=== PATIENT | female | born 1980 | race Caucasian/White ===

== ENCOUNTER 2020-09-11 04:50 | Inpatient (IN) | payer BC, SELFPAY ==
[2020-09-11] VITALS (88 sets, daily range): BP systolic 75–126; BP diastolic 51–96; PULSE 72–169; RESP 16; TEMP 36.1–37.3; O2SAT 94–100; BMI 32.5
--- NOTE | 2020-09-11 04:50 | LDADM ---
This patient, Mabel Clayton, was admitted to Labor/Delivery/Recovery 104 on 09/11/20 at 04:50. Plans for labor, pain management and were discussed with patient. Patient/family oriented to hospital policies and general routines including ID bracelet, bed and alarms, visiting hours, pain management, procedures, bathroom and other care routines, personal items, smoking policy, room service/diet and guest tray routines, security routines, and visiting hours. Patient/Family are encouraged to report perceived risks to care and to ask questions if they do not understand what they are told or what they should do. See OBIX for further documentation.
[2020-09-11 05:32] LABS: Basophils Percent Auto 0.4 % (0.2-1.2); Eosinophils Absolute Auto 0.1 K/mm3 (0-0.3); Eosinophils Percent Auto 1.3 % (0-4.4); Hematocrit 29.7 % (37.0-47.0); Hemoglobin 9.5 g/dL (12.0-15.0); Lymphocytes Absolute Auto 2.65 K/mm3 (0.9-3.2); Lymphocytes Percent Auto 27.3 % (18.3-44.2); Mean Corpuscular Hemoglobin 27.5 pg (26-34); Mean Corpuscular Volume 86.1 fl (80-100); Monocytes Absolute Auto 0.7 K/mm3 (0.1-0.6); Neutrophils Absolute Auto 6.1 K/mm3 (1.3-6.7); Platelet Count Result 192 k/mm3 (150-375); Red Blood Count 3.45 M/mm3 (4.2-5.4); White Blood Count 9.7 K/mm3 (4.5-10.0)
[2020-09-11] MEDS: AMPICILLIN 2 GM/NS 100 ML 2 GM/100 ML BAG IVPB (05:33)
[2020-09-11] MEDS: LACTATED RINGERS 1,000 ML 125 ML IV CONT ×2 (05:33→06:53)
[2020-09-11] MEDS: CALCIUM CARBONATE (TUMS) 500 MG (200 MG ELEMENTAL) PO (05:51)
--- NOTE | 2020-09-11 06:06 | WPDANESEPP ---
Anes - Eval Pre Procedure Procedure: labor epidural Date/Time: 09/11/20 06:06 Surgeon: ara Pre Op Diagnosis: IOL Patient Data Age: 40 Gender: F Height: 1.55 m Weight: 78 kg Last Vital Signs Temp 37.3 C 09/11/20 05:31 Pulse 98 09/11/20 06:00 BP 108/67 09/11/20 06:00 Allergies Allergy/AdvReac Type Severity Reaction Status Date / Time hydrocodone AdvReac Mild Nausea and Verified 05/23/19 19:33 Vomiting Home Medications Medication Instructions Recorded Confirmed Type PNV cmb#95-ferrous fumarate-FA 1 tablet PO DAILY 08/24/20 08/24/20 History [] Laboratory Tests 09/11/20 09/11/20 09/11/20 05:24 05:24 05:24 WBC 9.7 K/mm3 K/mm3 (4.5-10.0) RBC 3.45 M/mm3 L M/mm3 (4.2-5.4) Hgb 9.5 g/dL L g/dL (12.0-15.0) Hct 29.7 % L % (37.0-47.0) MCV 86.1 fl fl (80-100) MCH 27.5 pg pg (26-34) MCHC 32.0 g/dl g/dl (32-36) RDW 16.0 % H % (11.5-14.5) Plt Count 192 k/mm3 k/mm3 (150-375) MPV 11.0 fl H fl (7.4-10.4) Immature Gran % (Auto) 1.0 % H % (0-0.5) Neut % (Auto) 63.0 % % (45.5-73.1) Lymph % (Auto) 27.3 % % (18.3-44.2) [place] % (Auto) 7.0 % % (2.6-8.5) Eos % (Auto) 1.3 % % (0-4.4) Baso % (Auto) 0.4 % % (0.2-1.2) Lymph # (Auto) 2.65 K/mm3 K/mm3 (0.9-3.2) [place] # (Auto) 0.7 K/mm3 H K/mm3 (0.1-0.6) Eos # (Auto) 0.1 K/mm3 K/mm3 (0-0.3) Baso # (Auto) 0.0 K/mm3 K/mm3 (0.0-0.1) Abs Immat Gran (auto) 0.10 K/mm3 H K/mm3 (0.00-0.031) Absolute Neuts (auto) 6.1 K/mm3 K/mm3 (1.3-6.7) Absolute Nucleated RBC 0.0 K/mm3 K/mm3 (0.0-0.012) Nucleated RBC % 0.0 % % (0.0-0.2) RPR Pending HIV 1&2 Ab/P24 Ag 4thGn Pending Patient hx anesthesia problems: none Family hx anesthesia problems: none PMFSH Family History Family History Sibling Patient's sister is in good health Patient's brother is in good health Mother Family history of kidney disease Father Family history of diabetes mellitus in first degree relative Social History Social History Smoking status: Never smoker Alcohol intake: current Substance use: never Gender identity (if verbalized by the patient): Female Spiritual care concerns: No Exam Day of Procedure 09/11/20 06:06
[2020-09-11 06:29] LABS: HIV 1/2 Ab P24 Ag Result Negative (Negative)
--- NOTE | 2020-09-11 09:05 | WPDOBADMIT ---
Obstetrics - Admit Note Admission Note: record reviewed. Additions to the history and/or subsequent changes in the physical findings follow. 40 y/o at 39 weeks gestation with a favorable cervix, desiring induction of labor. GBS pos. AVSS ABD soft, nontender, gravid NST reactive TOCO: contractions every 2-4 min EXT nontender Cervix 6/80/-1. AROM with clearl fluid. A: IUP at term with advanced dilation of cervix. GBS pos. P: Oxytocin. Ampicillin. Anticipate ..
[2020-09-11] MEDS: AMPICILLIN 1 GM/NS 50 ML 1 GM/50 ML BAG IVPB (09:19)
[2020-09-11] MEDS: OXYTOCIN 30 UNITS/NS 500 ML 30 UNITS/500 ML BAG IV CONT (09:49)
[2020-09-11 11:04] LABS: Rapid Plasma Reagin Non-Reactive (NonReactive)
--- NOTE | 2020-09-11 11:14 | PM.OBPRVD ---
OB - Delivery Note Procedure Delivery date: 09/11/20 Procedure: Induction of labor with Intrapartal events: None Induction method: AROM and per pitocin protocol Delivery monitor: external FHT and external uterine Route of delivery: Laceration Description: Perineal - 2nd Degree Delivery repair: vicryl (3-0) Specimen: Yes (cord blood) Quantitative Blood Loss (ml): 620 Anesthesia type: Epidural Disposition: PACU Complications: None Narrative: 40 y/o at 39 weeks gestation who presented to the hospital for induction of labor. Oxytocin was administered intravenously. She received ampicillin for GBS colonization. Amniotomy was performed with return of clear fluid. She received an epidural for pain control. Her labor progressed and her cervix dilated completely. She pushed with good effort and delivered the infant's head to the perineum. The loose nuchal cord was splinted and the body delivered. The cord was reduced. The nose and mouth were bulb suctioned. After a delay, the cord was clamped and cut. The was handed off the field. Cord blood was collected. The placenta delivered spontaneously and was grossly normal in appearance. The usual 3 vessel cord was noted. A second degree midline perineal laceration was sustained. This was reapproximated using 3 0 Vicryl in the usual layered fashion. Excellent hemostasis resulted as did excellent reapproximation of the normal anatomy. Needle and instrument counts were correct. The patient was taken to recovery room in stable condition. The went to the nursery in stable condition. I was present and scrubbed for the entire delivery. Baby Date of : 09/11/20 Time of : 11:42 Weeks of gestation at delivery: 39 Infant gender: Female Weight (pounds): 8 Weight (ounces): 0 presentation: vertex position: Left Occiput Posterior Placenta delivery description: Spontaneous and Normal Configuration cord vessel description: 3 Vessels, Nuchal Cord and Delayed Cord Clamping score one minute: 8 score five minutes: 9
--- NOTE | 2020-09-11 11:16 | PM.OBDSVD ---
DS: Admitting Diagnosis Admitting Diagnosis Admitting Diagnosis: IUP at 39 weeks Favorable cervix GBS colonization DS: Discharge Diagnosis Discharge Diagnosis (1) (normal spontaneous vaginal delivery): Code(s): O80 - Encounter for full-term uncomplicated delivery Status: Acute (2) GBS (group B Streptococcus carrier), +RV culture, currently : Code(s): O99.820 - Streptococcus B carrier state complicating Status: Acute OB - DS: Summary OB Procedures : None OB Procedures Intrapartum: Spontaneous Vag Delivery OB Procedures: : None DS: Data Data Completed and Pending Labs on day of discharge: Labs from last 24 hours 09/11/20 09/11/20 09/11/20 05:24 05:24 05:24 WBC 9.7 RBC 3.45 L Hgb 9.5 L Hct 29.7 L MCV 86.1 MCH 27.5 MCHC 32.0 RDW 16.0 H Plt Count 192 MPV 11.0 H Immature Gran % (Auto) 1.0 H Neut % (Auto) 63.0 Lymph % (Auto) 27.3 [place] % (Auto) 7.0 Eos % (Auto) 1.3 Baso % (Auto) 0.4 Lymph # (Auto) 2.65 [place] # (Auto) 0.7 H Eos # (Auto) 0.1 Baso # (Auto) 0.0 Abs Immat Gran (auto) 0.10 H Absolute Neuts (auto) 6.1 Absolute Nucleated RBC 0.0 Nucleated RBC % 0.0 RPR Non-reactive HIV 1&2 Ab/P24 Ag 4thGn Blood Type A Positive Antibody Screen Negative 09/11/20 05:24 WBC RBC Hgb Hct MCV MCH MCHC RDW Plt Count MPV Immature Gran % (Auto) Neut % (Auto) Lymph % (Auto) [place] % (Auto) Eos % (Auto) Baso % (Auto) Lymph # (Auto) [place] # (Auto) Eos # (Auto) Baso # (Auto) Abs Immat Gran (auto) Absolute Neuts (auto) Absolute Nucleated RBC Nucleated RBC % RPR HIV 1&2 Ab/P24 Ag 4thGn Negative Blood Type Antibody Screen Discharge Plan Discharge Attending physician on discharge: Dipak Mesa Discharging Clinician: Dipak Mesa Patient Disposition: Home, Self-Care Activity: pelvic rest Diet: regular Discharge Instructions: Call or return if temperature above 100.4? F, increased abdominal pain, increased vaginal bleeding or any new problems. Stand Alone Forms: General Discharge Information Follow-up/Referrals: Dipak Mesa MD [Physician] - 6 Weeks Discharge Medications: New oxycodone-acetaminophen [Percocet] 5-325 mg tablet 1 - 2 tablet PO Q6H PRN (Reason: pain) Qty: 30 RF: 0 ibuprofen 600 mg tablet 600 mg PO Q6H PRN (Reason: cramps) Qty: 30 RF: 0 ferrous sulfate 325 mg (65 mg iron) tablet 325 mg PO DAILY Qty: 30 RF: 0 No Action PNV cmb#95-ferrous fumarate-FA [] 28 mg iron- 800 mcg Tablet 1 tablet PO DAILY RF: 0 Date of admission: 09/11/20 04:50 Primary Care Provider: PHYSICIAN,SENIOR PATIENT ACCOUNT REPRESENTATIVE Admitting Provider: Dipak Mesa Attending physician on admission: Dipak Mesa Condition: Stable
[2020-09-11] MEDS: OXYTOCIN 30 UNITS/NS 500 ML 30 UNITS/500 ML BAG 125 UNITS IV CONT (11:20)
[2020-09-11] MEDS: BENZOCAINE 20% AER SPR (*SP) 56 GM CAN 1 SPRAY TOPICAL (12:33)
[2020-09-11] MEDS: WITCH HAZEL 40 PADS 1 PAD TOPICAL (12:33)
[2020-09-11] MEDS: LANOLIN (LANSINOH) 7.5 GM CREAM 1 APPLIC TOPICAL (12:33)
[2020-09-11] MEDS: IBUPROFEN 600 MG TABLET PO ×2 (13:08→19:20)
[2020-09-11] MEDS: ACETAMINOPHEN 325 MG TABLET 650 MG PO (14:07)
--- NOTE | 2020-09-11 14:55 | PC.NURSE ---
Patient transferred to post room #281 via wheelchair from labor and delivery. Support person present. Oriented to unit, room, information board, rooming in, admission packet and security measures. Patient verbalizes understanding.
[2020-09-11] MEDS: DOCUSATE SODIUM 100 MG CAPSULE PO (15:58)
[2020-09-11] MEDS: oxyCODONE/ACETAMINOPHEN (*CRX) 5-325 MG TABLET 1 TABLET PO ×2 (15:58→23:30)
[2020-09-11] MEDS: POLYSACCHARIDE IRON COMPLEX 150 MG CAPSULE PO (15:58)
[2020-09-12] MEDS: IBUPROFEN 600 MG TABLET PO ×4 (01:04→19:33)
[2020-09-12] MEDS: oxyCODONE/ACETAMINOPHEN (*CRX) 5-325 MG TABLET 1 TABLET PO (04:26)
[2020-09-12 05:22] LABS: Hematocrit 20.8 % (37.0-47.0); Hemoglobin 6.6 g/dL (12.0-15.0)
[2020-09-12 07:30] VITALS: BP 92/56; PULSE 97; RESP 16; TEMP 36.5
--- NOTE | 2020-09-12 08:53 | WPDANLDPN2 ---
Anes-Prog Note L&D Date/Time: 09/12/20 08:53 Comfortable throughout: labor and delivery Neuraxial method: epidural Epidural/Spinal procedure site: clean & non-tender Neuro status: Neuro function grossly intact. Cardiovascular status: normal Respiratory status: normal Airway patency: baseline Mental status: baseline Post-Op hydration status: normal Vital Signs: Last Vital Signs Temp 36.5 C 09/12/20 07:30 Pulse 97 09/12/20 07:30 Resp 16 09/12/20 07:30 BP 92/56 L 09/12/20 07:30 Pulse Ox 94 09/11/20 20:00 Pain score (VAS): 0 Post-procedural complaints: none Patient feedback: Patient satisfied with anesthetic care.
[2020-09-12] MEDS: POLYSACCHARIDE IRON COMPLEX 150 MG CAPSULE PO ×2 (09:01→16:18)
[2020-09-12] MEDS: DOCUSATE SODIUM 100 MG CAPSULE PO ×2 (09:01→16:18)
[2020-09-12] MEDS: MULTIVIT/MIN/PREN/FOL AC/IRON TABLET 1 TAB PO (09:02)
[2020-09-12] MEDS: ACETAMINOPHEN 325 MG TABLET 650 MG PO ×3 (10:03→22:15)
--- NOTE | 2020-09-12 10:10 | PC.NURSE ---
Phone call placed to Dr. Mesa regarding nipple cream RX being sent to pharmacy. Dr. Mesa will order RX to pharmacy.
--- NOTE | 2020-09-12 13:37 | PC.NURSE ---
Consulted with patient this morning, reviewed feeding cues, frequencies, duration of feedings, feeding elimination flow sheet, and signs of adequate intake. Nipple care reviewed. Instructed mother to call out for next feeding and have feeding assessed. Instructed feeding should be initiated three hours from start of last feeding or if feeding cues are noted before. Mother voiced understanding of information shared. Mom states that she would like to continue feeding with nipple shield for comfort and pumping after putting infant to breast while also supplementing with formula. Mother states this is her 3rd baby and this is what she has done with previous children. RN in patient's room and patient declines wanting to have a feeding checked by nurse. States she has a plan and has no further questions.
--- NOTE | 2020-09-12 16:56 | PM.OBPNVD ---
OB - PN: Subj Subjective Date/time seen: 09/12/20 16:56 Narrative: Pain OK. OB - PN: Obj Data Labs CBC & Chem 7: 09/12/20 04:31 Labs: Laboratory Results - last 24 hr 09/12/20 04:31 Hgb 6.6 L* Hct 20.8 L* OB - PN A/P Plan Comments: A: PPD#1, doing well. P: Routine care. Exam Psych: Other: AVSS ABD soft, nontender, fundus firm EXT nontender
[2020-09-12 20:00] VITALS: BP 100/60; PULSE 104; RESP 16; TEMP 36.7; O2SAT 100
[2020-09-13] MEDS: IBUPROFEN 600 MG TABLET PO ×2 (01:30→07:38)
[2020-09-13] MEDS: ACETAMINOPHEN 325 MG TABLET 650 MG PO ×2 (04:18→10:52)
[2020-09-13] MEDS: MULTIVIT/MIN/PREN/FOL AC/IRON TABLET 1 TAB PO (07:38)
[2020-09-13] MEDS: DOCUSATE SODIUM 100 MG CAPSULE PO (07:39)
[2020-09-13] MEDS: POLYSACCHARIDE IRON COMPLEX 150 MG CAPSULE PO (07:39)
[2020-09-13 07:45] VITALS: BP 111/68; PULSE 82; RESP 18; TEMP 36.6
--- NOTE | 2020-09-13 08:41 | PM.OBPNVD ---
OB - PN: Subj Subjective Date/time seen: 09/13/20 08:41 Narrative: Pain OK. Would like to go home. Also has asked for a compounded nipple cream to be sent to the pharmacy. OB - PN: Obj Data Labs CBC & Chem 7: 09/12/20 04:31 OB - PN A/P Plan Comments: A: PPD#2, doing well. P: Home to f/u 6 weeks. Exam Psych: Other: AVSS ABD soft, nontender, fundus firm EXT nontender
--- NOTE | 2020-09-13 08:49 | PC.NURSE ---
note; mother reports pumping and bottle feeding; nurse encouraged her to pump at every feeding to help establish milk supply; she reports hx of breast feeding and always needing supplement. Reviewed nipple care, her own breast milk and air drying, and warm tea bags suggested.and pumping 15 minutes and to comfort as her milk volume increases. Reviewed use of breast milk first, and adding formula amount baby wants and q3-4 feedings. Mother pumped while nurse present; initially 24mm flanges used,and mother c/o nipple pain. 27mm flanges then used, and mother reported comfortable pumping. Mother has Mother Baby Guide including breast feeding information, and LC contact information. she hasd no questions for nurse and seems very comfortable with this feeding plan.
[2020-09-14 11:02] VITALS: BP 119/63; PULSE 103; RESP 20; TEMP 36.8; O2SAT 100
== END 2020-09-13 12:50 | disposition home or self-care (01) | DRG 807 ==
LOC: ANHLDR 11:17 → ANHOB2 14:57
PROVIDERS: Admitting Provider Obstetrics & Gynecology; Visit Provider Obstetrics & Gynecology
DX: O99.824 Streptococcus B carrier state complicating childbirth (principal); Z37.0 Single live birth; Z3A.39 39 weeks gestation of pregnancy; O70.1 Second degree perineal laceration during delivery; O69.81X0 Labor and delivery complicated by cord around neck, without compression, not applicable or unspecified
CPT/HCPCS: 36415; 85014; 85018; 85025; 86592; 86703; 86850; 86900; 86901; A9270; G0432; J0290; J2590; J2795; J7120